=== PATIENT | female | born 1995 ===

== ENCOUNTER 2016-12-05 18:16 | Emergency (ER) | payer BC ==
[2016-12-05 18:34] VITALS: BP 134/86; PULSE 90; RESP 20; TEMP 98.5; O2SAT 100
--- NOTE | 2016-12-05 19:55 | ED PDOC ---
HPI: Skin/Bite Injury Time Seen by Provider: 12/05/16 19:32 Chief Complaint (Nursing): Abnormal Skin Integrity Chief Complaint (Provider): RIGHT groin lesion Past Medical History Vital Signs: Last Vital Signs Temp 98.5 F 12/05/16 18:37 Pulse 90 12/05/16 18:37 Resp 20 12/05/16 18:37 BP 134/86 12/05/16 18:37 Pulse Ox 100 12/05/16 18:37 - Home Medications Home Medications: Ambulatory Orders Medication Instructions Recorded Clindamycin [Cleocin] 300 mg PO TID #21 cap 12/05/16 - Allergies Allergies/Adverse Reactions: Allergies Allergy/AdvReac Type Severity Reaction Status Date / Time azithromycin Allergy RASH Verified 12/05/16 18:35 [From Zithromax Z-Dariusz] - ECG O2 Sat by Pulse Oximetry: 100 Disposition - Clinical Impression Clinical Impression: Folliculitis Counseled Patient/Family Regarding: Studies Performed, Diagnosis - Disposition Referrals: [facility] [Outside] (CALL TOMORROW FOR ASSISTANCE WITH SCHEDULING A DERMATOLOGY APPOINTMENT NEXT WEEK.) Disposition: Routine/Home Disposition Time: 19:54 Condition: GOOD Prescriptions: Clindamycin [Cleocin] 300 mg PO TID #21 cap Instructions: Folliculitis (ED)
== END 2016-12-05 20:00 | disposition home or self-care (01) ==
LOC: H.ER 18:16
DX: L73.9 Follicular disorder, unspecified (principal)